=== PATIENT | female | born 1980 | race Caucasian/White ===

== ENCOUNTER → 2020-09-28 | Outpatient (CLI) | payer BC ==
[~2020-09-28] MED LIST: AMOX500C2 PO; CEPH500C PO; CYCL10TA45 PO; CYCL10TA9 PO; DIPH25TA65 PO; FAMO20TA5 PO; HYDR-757 PO; LISI1TAB10 PO; LISI1TAB46 PO; OMEP20TA7 PO
--- NOTE | 2020-09-28 09:20 | Diagnostic Imaging Report ---
PROCEDURE: US Gallbladder. TECHNIQUE: Multiple real-time grayscale images were obtained over the right upper quadrant in various projections. INDICATION: Heartburn. Liver is mildly enlarged at 18.9 cm. There is diffuse increased echogenicity throughout the liver consistent with hepatic steatosis. No discrete liver mass is identified. The portal vein is patent and shows normal direction of flow. Gallbladder is without stones or sludge. No wall thickening or biliary duct dilatation is seen. Visualized pancreas is unremarkable. Aorta is nonaneurysmal. IVC is patent. Right kidney is without calculi or hydronephrosis. There is no ascites. IMPRESSION: 1. Mild hepatomegaly and hepatic steatosis. 2. No evidence of cholelithiasis or acute cholecystitis. Dictated by: Dictated on workstation # [id number]
== END ==
LOC: RAD 08:30
PROVIDERS: ATTEND Surgery
DX: K76.0 Fatty (change of) liver, not elsewhere classified (principal); R12 Heartburn
CPT/HCPCS: 76705

== ENCOUNTER 2020-10-05 05:32 | Outpatient (RCR) | payer BC ==
[~2020-10-05] VITALS: Ht 172.7 cm; Wt 109.0 kg
== END 2020-10-05 08:48 | disposition home or self-care (01) ==
LOC: PREOP 05:32
PROVIDERS: ATTEND Surgery
DX: Z01.812 Encounter for preprocedural laboratory examination (principal); R12 Heartburn; R13.10 Dysphagia, unspecified; Z20.822 Contact with and (suspected) exposure to COVID-19
CPT/HCPCS: 87635

== ENCOUNTER 2020-10-06 12:37 | Day surgery (SDC) | payer BC ==
[~2020-10-06] VITALS: Ht 172.7 cm; Wt 109.0 kg
[~2020-10-06 12:37] MED LIST changes: +LACTATED RINGERS 1,000 ML IV ONE
[2020-10-06] MEDS ORDERED: LACTATED RINGERS 1,000 ML IV STA (12:41)
[2020-10-06] MEDS ORDERED: HURRICAINE EXT TUBE (BENZOCAINE) XX PRN (12:45)
[2020-10-06 13:08] VITALS: BP 158/91
[2020-10-06 13:45] VITALS: BP 106/59
[2020-10-06] MEDS ORDERED: MIDAZOLAM 2 MG/2 ML (VERSED) VIAL ONE (14:41)
[2020-10-06] MEDS ORDERED: proPOfol 200 MG/20 ML (DIPRIVAN) VIAL IV ONE (14:41)
[2020-10-06] MEDS ORDERED: LIDOCAINE TOPICAL 4% 50 ML BTL ONE (15:12)
--- NOTE | 2020-10-06 15:19 | Progress Note-Pre Operative ---
Pre-Operative Progress Note H&P Reviewed The H&P was reviewed, patient examined and no changes noted. Time Seen by Provider: 15:16 Date H&P Reviewed: Oct 06, 2020 Time H&P Reviewed: 15:16 Pre-Operative Diagnosis: Heartburn, dysphagia ROQUE CALL DO Oct 06, 2020 15:19
[2020-10-06] MEDS ORDERED: LIDOCAINE 2% VISCOUS 15 ML UDC PO ONE (15:20)
[2020-10-06 15:39] VITALS: BP 96/52
--- NOTE | 2020-10-06 15:42 | Endoscopy Discharge Instruct ---
Endo Procedure/Findings Findings 1.: Hiatal Hernia 2.: Gastritis Discharge Instructions - Activity: You might feel a little sleepy until tomorrow. This is due to the medicine you received to relax you. Until tomorrow, you should: NOT drive a car, operate machinery or power tools. NOT drink any alcoholic beverages. NOT make any important decisions or sign importortant papers. Do not return to work until tomorrow, unless otherwise instructed. Resume previous activities tomorrow. Diet: Start by taking liquids. If you tolerate liquids, advance to solid food. 1.: EGD in 3 years Notify Physician - If you experience excessive bleeding, unusual abdominal pain, fever, or chest pain, contact your doctor immediately. ROQUE CALL DO Oct 06, 2020 15:42
--- NOTE | 2020-10-06 15:42 | Progress Note-Post Operative ---
Post-Operative Progess Note Surgeon (s)/Assistant Program Manager (s) Surgeon ROQUE CALL DO Assistant Program Manager: none Pre-Operative Diagnosis Heartburn, dysphagia Post-Operative Diagnosis Gastritis Hiatal hernia Procedure & Operative Findings Date of Procedure 10/06/20 Procedure Performed/Findings PROCEDURE NOTE: After informed consent was obtained, the patient was brought to the endoscopy suite, placed in bed in left lateral decubitus position. She was administered IV sedation by the RN TRIAGE who then monitored her vitals the entire time, heart rate, blood pressure and pulse ox and the scope was inserted down the mouth through the esophagus into the stomach. On the way down, noted some mild esophagitis, took a picture, pushed into the stomach, pushed past the antrum into the duodenum. Duodenum looked good. Pulled back and did a biopsy of antrum, then retroflexed the scope, saw hiatal hernia, took a picture of this. Then did a biopsy of the body of the stomach and then pulled the scope into the GE junction, took another picture of the hiatal hernia and then did a biopsy of the GE junction. Pushed the scope back into the stomach, suctioned all the air out of the stomach and then pulled the scope up the esophagus, took some pictures in the esophagus. There were no ulcers or signs of stricture and at this point pulled the scope up the esophagus and out the mouth. The patient tolerated the procedure, and she recovered in endoscopy suite. Anesthesia Type IV sedation by RN TRIAGE Estimated Blood Loss Estimated blood loss (mL): scant Specimens/Packing Specimens Removed antral bx body of stomach bx GE jxn bx ROQUE CALL DO Oct 06, 2020 15:42
[2020-10-06 16:15] VITALS: BP 118/75
[2020-10-06 16:25] VITALS: BP 118/75
--- NOTE | 2020-10-06 20:01 | Anesthesia-General Post-Op ---
MAC Patient Condition Mental Status/LOC: Same as Preop Cardiovascular: Satisfactory Nausea/Vomiting: Absent Respiratory: Satisfactory Pain: Controlled Complications: Absent Post Op Complications Complications None Follow Up Care/Instructions Patient Instructions None needed. Anesthesiology Discharge Order Discharge Order Patient is doing well, no complaints, stable vital signs, no apparent adverse anesthesia problems. No complications reported per nursing. VICTORIANO SARABIA CRNA Oct 06, 2020 20:01
== END 2020-10-06 16:25 | disposition home or self-care (01) ==
LOC: ENDO 12:37
PROVIDERS: ATTEND Surgery
DX: K29.50 Unspecified chronic gastritis without bleeding (principal); K21.00 Gastro-esophageal reflux disease with esophagitis, without bleeding; K44.9 Diaphragmatic hernia without obstruction or gangrene; I10 Essential (primary) hypertension; J30.2 Other seasonal allergic rhinitis; E66.9 Obesity, unspecified; Z79.899 Other long term (current) drug therapy; Z90.89 Acquired absence of other organs; Z68.41 Body mass index [BMI] 40.0-44.9, adult
CPT/HCPCS: 84703; 88305

== ENCOUNTER → 2020-10-11 | Outpatient (CLI) | payer BC ==
[~2020-10-11] MED LIST changes: +CATHETER FLUSH 10 ML SYR IV PRN; -LACTATED RINGERS 1,000 ML IV ONE
--- NOTE | 2020-10-11 19:08 | Diagnostic Imaging Report ---
EXAMINATION: Nuclear medicine hepatobiliary scan INDICATION: Abdominal pain This study was performed following administration of 5.02 mCi at 99 m Technetium Choletec. One can of Ensure was also administered for the calculation of the ejection fraction. There are no prior nuclear medicine studies available for comparison. The gallbladder ultrasound exam performed on 09/28/2020 failed to show any sign of cholelithiasis or acute cholecystitis. On this study, there is uptake of the radiotracer by the gallbladder before 30 minutes. This would weigh against the diagnosis of acute cholecystitis. There is also extension of the radiotracer into the small bowel indicating the common bile duct is not obstructed. The ejection fraction is 33% (normal greater than 35%). The reason for the slight diminished ejection fraction is not certain. IMPRESSION: 1. There is no evidence for acute cholecystitis or for obstruction of the common bile duct. 2. The ejection fraction is 33% and just below normal limits. Clinical follow-up is recommended. Dictated by: Dictated on workstation # [id number]
== END ==
LOC: CARD 12:45
PROVIDERS: ATTEND Surgery
DX: R12 Heartburn (principal); R10.9 Unspecified abdominal pain
CPT/HCPCS: 78227; A9537

== ENCOUNTER → 2020-10-15 | Outpatient (CLI) | payer BC ==
[~2020-10-15] MED LIST changes: +HOLD METFORMIN - RECEIVED CONTRAST 20 ML VIAL IV SCH; +IOHEXOL 350 MG/ML 100 ML (OMNIPAQUE 350) VIAL IV ONE; +NS 100 ML (IVPB) BAG IV ONE
--- NOTE | 2020-10-15 12:48 | Diagnostic Imaging Report ---
INDICATION: Adnexal mass. TECHNIQUE: Multiple contiguous axial images were obtained through the abdomen and pelvis after administration of intravenous contrast. Auto Exposure Controls were utilized during the CT exam to meet ALARA standards for radiation dose reduction. All CT scans use one or more of the following dose optimizing techniques: automated exposure control, MA and/or KvP adjustment based on patient size and exam type or iterative reconstruction. There is no previous study for comparison. The visualized portions of the lung bases are clear. There were no pleural fluid collections. There is no free intraperitoneal air. The liver shows diffuse low-density change compatible with fatty infiltration. Gallbladder appeared normal. The spleen, adrenals, and pancreas are normal. The right kidney is normal. The left kidney shows a nonocclusive stone in the midpole measuring 6 to 7 mm. There is no ureteral stone or hydronephrosis. There is no retroperitoneal mass. There is no ascites. There is a large mass in the mid pelvis which appears to arise from the right ovary. This mass contains study elements and measures 13.3 x 10.3 x 11.4 cm. The lesion has fairly smooth round appearance. The uterus and left adnexa appear normal. Visualized bowel loops are unremarkable. There is no bone abnormality seen. There is an incidental small fat-containing periumbilical hernia. IMPRESSION: Large right adnexal lesion, measuring over 13 cm in diameter. The lesion contains fatty elements and is therefore compatible with a dermoid lesion. There is no other acute finding. Incidental nonocclusive stone in the left kidney. Dictated by: Dictated on workstation # [id number]
== END ==
LOC: RAD 10:51
PROVIDERS: ATTEND Pediatrics
DX: N83.8 Other noninflammatory disorders of ovary, fallopian tube and broad ligament (principal)
CPT/HCPCS: 74177

== ENCOUNTER 2020-11-03 05:31 | Outpatient (CLI) | payer BC ==
[~2020-11-03] VITALS: Ht 160 cm; Wt 109.0 kg
[~2020-11-03 05:31] MED LIST changes: -CATHETER FLUSH 10 ML SYR IV PRN; -HOLD METFORMIN - RECEIVED CONTRAST 20 ML VIAL IV SCH; -IOHEXOL 350 MG/ML 100 ML (OMNIPAQUE 350) VIAL IV ONE; -NS 100 ML (IVPB) BAG IV ONE
== END 2020-11-04 16:28 | disposition home or self-care (01) ==
LOC: PREOP 05:31
PROVIDERS: ATTEND Surgery
DX: Z01.818 Encounter for other preprocedural examination (principal)

== ENCOUNTER 2020-11-15 06:10 | Day surgery (SDC) | payer BC ==
[~2020-11-15] VITALS: Ht 160 cm; Wt 109.0 kg
[2020-11-15] VITALS (13 sets, daily range): BP systolic 109–132; BP diastolic 54–91
[2020-11-15] MEDS ORDERED: SEVOFLURANE (ULTANE) 15 ML INHAL SOLN ONE ×3 (06:44→09:57)
[2020-11-15] MEDS ORDERED: fentaNYL INJ 100 MCG/2 ML AMP ONE (06:44)
[2020-11-15] MEDS ORDERED: ROCURONIUM 10 MG/ML 5 ML SYRINGE IV ONE ×2 (06:44→08:21)
[2020-11-15] MEDS ORDERED: LIDOCAINE PF 2% 5 ML (XYLOCAINE) VIAL ONE (06:44)
[2020-11-15] MEDS ORDERED: ONDANSETRON 4 MG/2 ML (SDV) Z0FRAN ONE (06:44)
[2020-11-15] MEDS ORDERED: proPOfol 200 MG/20 ML (DIPRIVAN) VIAL IV ONE (06:44)
[2020-11-15] MEDS ORDERED: MIDAZOLAM 2 MG/2 ML (VERSED) VIAL ONE (06:46)
[2020-11-15] MEDS: LACTATED RINGERS 1,000 ML IV PRN ×2 (06:51→08:20)
[2020-11-15] MEDS ORDERED: BUPIVACAINE 0.25% 30 ML (SENSORCAINE) VIAL ONE (06:54)
[2020-11-15] MEDS ORDERED: LIDOCAINE/EPI 1%-1:100,000 (XYLOCAINE) 20ML ONE (06:54)
[2020-11-15] MEDS ORDERED: ceFAZolin 2 GM IV Premixed 50 ML IV ONE (07:00)
[2020-11-15] MEDS ORDERED: metroNIDAZOLE 500MG/100ML IVPB 100 ML IV ONE (07:00)
[2020-11-15] MEDS ORDERED: INDOCYANINE GREEN 25 MG (ICG) VIAL IV ONE (07:00)
[2020-11-15 07:04] LABS: BASOPHILS # (AUTO) 0.1 10^3/uL (0.0-0.1); BASOPHILS % (AUTO) 1 % (0-10); EOSINOPHILS # (AUTO) 0.6 10^3/uL (0.0-0.3); EOSINOPHILS % (AUTO) 5 % (0-10); HEMATOCRIT 37 % (35-52); LYMPHOCYTES # (AUTO) 1.5 10^3/uL (1.0-4.0); LYMPHOCYTES % (AUTO) 15 % (12-44); MEAN CORPUSCULAR HEMOGLOBIN 30 pg (25-34); MEAN CORPUSCULAR HGB CONC 33 g/dL (32-36); MEAN CORPUSCULAR VOLUME 90 fL (80-99); MEAN PLATELET VOLUME 9.1 fL (9.0-12.2); MONOCYTES # (AUTO) 0.7 10^3/uL (0.0-1.0); MONOCYTES % (AUTO) 7 % (0-12); NEUTROPHILS # (AUTO) 7.7 10^3/uL (1.8-7.8); NEUTROPHILS % (AUTO) 73 % (42-75); PLATELET COUNT 354 10^3/uL (130-400); WHITE BLOOD COUNT 10.5 10^3/uL (4.3-11.0)
--- NOTE | 2020-11-15 07:29 | Progress Note-Pre Operative ---
Pre-Operative Progress Note H&P Reviewed The H&P was reviewed, patient examined and no changes noted. Time Seen by Provider: 07:24 Date H&P Reviewed: Nov 15, 2020 Time H&P Reviewed: 07:24 Pre-Operative Diagnosis: Biliary Dyskinesia ROQUE CALL DO Nov 15, 2020 07:29
--- NOTE | 2020-11-15 07:49 | Progress Note-Pre Operative ---
Pre-Operative Progress Note H&P Reviewed The H&P was reviewed, patient examined and no changes noted. Date Seen by Provider: Nov 15, 2020 Time Seen by Provider: 07:30 Date H&P Reviewed: Nov 15, 2020 Time H&P Reviewed: 07:24 Pre-Operative Diagnosis: AUB, Pelvic Mass, BMI > 40 MIKE DE LA O DO Nov 15, 2020 07:49
[2020-11-15] MEDS ORDERED: IBUP-844 PO (07:50)
[2020-11-15] MEDS ORDERED: SMT80CT PO (07:50)
[2020-11-15] MEDS ORDERED: BENZ1LOZ64 MM (07:50)
[2020-11-15] MEDS ORDERED: DCS100C PO (07:50)
[2020-11-15] MEDS ORDERED: HYDR-34 PO (07:50)
--- NOTE | 2020-11-15 07:52 | Discharge Inst-Women's Service ---
Discharge Inst-Women's Serv Depart Medication/Instructions New, Converted or Re-Newed RX: RX on Chart Problems Reviewed?: Yes Consults/Follow Up Additional Follow Up: Yes Orders/Referrals Dr. Franklin in 7-10 days and in 8 weeks Activity Activity: Activity as Tolerated Driving Instructions: No Driving for 1 Week NO SMOKING: NO SMOKING Nothing Inside Vagina: No Douching, No [place], No Tampons Diet Discharge Diet: No Restrictions Symptoms to Report to : Bleeding Excessive, Pain Increased, Fever Over 101 Degrees F, Vaginal Bleeding Increase, Questions/Concerns For Any Problems or Questions: Contact Your Physician Skin/Wound Care Infection Signs and Symptoms: Increased Redness, Foul Odor of Wound, Increased Drainage, Skin Itchy or Has a Rash, Increased Swelling, Temperature Above 101 F Operative Area Clean and Dry: Keep Incision Clean/Dry Stitches/Anatoliy/Dermabond: Dermabond, Care of Stitches Bathing Instructions: MIKE Hernandez DO Nov 15, 2020 07:52
[2020-11-15] MEDS ORDERED: LACTATED RINGERS 1,000 ML IV SCH (08:00)
[2020-11-15] MEDS ORDERED: ZOLPIDEM 5 MG (AMBIEN) TAB PO PRN (08:00)
[2020-11-15] MEDS ORDERED: ONDANSETRON 4 MG/2 ML (SDV) Z0FRAN IV PRN (08:00)
[2020-11-15] MEDS ORDERED: ANTACID SUSP 30 ML UDC (MYLANTA) PO PRN (08:00)
[2020-11-15] MEDS ORDERED: CHLORASEPTIC LOZENGE MM PRN (08:00)
[2020-11-15] MEDS ORDERED: SIMETHICONE 80 MG (MYLICON) CHEW PO PRN (08:00)
[2020-11-15] MEDS ORDERED: HYDROmorphone 2 MG/ML VIAL (DILAUDID) ONE (08:02)
[2020-11-15] MEDS: KETOROLAC 30 MG/ML VIAL IV PRN ×3 (09:15→21:22)
[2020-11-15] MEDS ORDERED: GLYCOPYRROLATE 0.2 MG/ML (ROBINUL) 2 ML VIAL ONE (09:18)
[2020-11-15] MEDS ORDERED: NEOSTIGMINE 3 MG/3 ML VIAL ONE (09:18)
--- NOTE | 2020-11-15 09:26 | Progress Note-Post Operative ---
Post-Operative Progess Note Surgeon (s)/Zinc Chloride Operator (s) Surgeon ROQUE CALL DO Zinc Chloride Operator: Noemi Pre-Operative Diagnosis Biliary Dyskinesia Post-Operative Diagnosis same Procedure & Operative Findings Date of Procedure 11/15/20 Procedure Performed/Findings PROCEDURE: Laparoscopic cholecystectomy with intraoperative cholangiogram - Robotic assisted COMPLICATIONS: None. PROCEDURE: The patient was taken to the operating suite and was prepped and draped in sterile fashion. A surgical pause was performed. Just superior to the umbilicus, a 12 mm incision was made. Dissection was taken down to the fascia, which was then scored and grasped with a Alex and the abdomen was then entered. A 0 Vicryl suture was placed in a tamdln-xm-murda fashion and a Rodrigues trocar was placed and secured. Pneumoperitoneum was achieved. An 8mm trochar placed 8cm from supraumbilical port on the right and then 2 in the left upper quadrant; under direct visualization. The gallbladder was then grasped and elevated. The cystic duct, and cystic artery were then dissected out. Clip was placed on the distal portion of the cystic duct and using ICG and Firefly, able to trace the cystic duct going into the common bile duct. Clips were placed on proximal portion of the cystic duct and then the duct was then transected. Clips were placed along the proximal and distal portion of the cystic artery which was then transected. Hook cautery was used to dissect the gallbladder from the gallbladder fossa achieving hemostasis. The gallbladder was placed in an Endobag and removed through the 12 mm trocar site. The abdomen was then reinspected. Copious amounts of irrigation were used to irrigate the abdomen and there were no signs of active bleeding. Hemostasis had been achieved. Dr. Franklin then performed the Hysterectomy. Anesthesia Type GET Estimated Blood Loss Estimated blood loss (mL): scant Specimens/Packing Specimens Removed GB and contents ROQUE CALL DO Nov 15, 2020 09:26
--- NOTE | 2020-11-15 09:28 | Discharge Inst-Surgical ---
Discharge Inst-Surgical Depart Medication/Instructions New, Converted or Re-Newed RX: Other Patient Instructions Follow up Appt: Make appointment for 1 week. [phone] Instructions: No lifting greater than 20 pounds. No strenuous activity. May shower in 24 hours, no tub bath or soaking. Use incentive spirometer at home as directed. No Smoking Skin/Wound Care: May remove bandages in am. You need to leave the Dermabond on incision it will fall off on it's own. Symptoms to Report: Appetite Changes, Extremity Discoloration, Numbness/Tingling, Swelling Increased, Bleeding Excessive, Eyesight Changes, Pain Increased, Urine Color Change, Constipation(Persistent), Fever over 101 degree F, Pain/Pressure in chest, Urinating Difficulty, Cough Up/Vomit Blood, Heart Beat Irreg/Pounding, Pain/Pressure in jaw, Cramps in feet or legs, Lightheadedness, Pain/Pressure in shoulder, Diarrhea(Persistent), Memory Changes Suddenly, Questions/Concerns, Weight gain consecutive days, Dizziness/Fainting, Nausea/Vomiting, Shortness of Breath, Weight gain over 2 pounds If questions or concerns contact your physician Or seek help at emergency department. Activity Activity as Tolerated: Yes Activity Instructions: Avoid Stress to Incision Driving Instructions: No Driving/Refer to Diet Discharge Diet: Avoid Fatty Foods, Low Fat/Low Cholesterol Diet After 24 Hours: Clear Liquid if Nauseous If Any Problems/Questions/Issu: Contact Your Physician, Go to Emergency Room Skin/Wound Care Infection Signs and Symptoms: Increased Redness, Foul Odor of Wound, Increased Drainage, Skin Itchy or Has a Rash, Increased Swelling, Temperature Above 101 F Wound Care Comment: heating pad to shoulder or neck tonight for pain Bathing Instructions: Shower Stitches/Lindsay/Dermabond Dis: Dermabond Ice Pack: Ice On and Off Site (as needed for pain at incision sites) ROQUE CALL DO Nov 15, 2020 09:28
[2020-11-15] MEDS ORDERED: KETOROLAC 30 MG/ML VIAL ONE (09:39)
[2020-11-15] MEDS ORDERED: ONDANSETRON 4 MG/2 ML (SDV) Z0FRAN IVP PRN (10:15)
[2020-11-15] MEDS ORDERED: HYDROmorphone 2 MG/ML VIAL (DILAUDID) IV ONE (10:15)
[2020-11-15] MEDS: HYDROmorphone 2 MG/ML VIAL (DILAUDID) IV PRN ×2 (12:36→17:35)
[2020-11-15] MEDS: HYDROcodone/APAP 7.5 MG/325 MG (LORTAB, LORCET PLUS) TABLET PO PRN ×2 (13:50→19:15)
--- NOTE | 2020-11-15 14:45 | OPERATIVE REPORT ---
DATE OF SERVICE: PREOPERATIVE DIAGNOSES: 1. A 40-year-old female with pelvic mass. 2. Abnormal uterine bleeding. 3. Biliary dyskinesia. POSTOPERATIVE DIAGNOSES: 1. A 40-year-old female with pelvic mass. 2. Abnormal uterine bleeding. 3. Biliary dyskinesia. PROCEDURES PERFORMED: Robotic-assisted total laparoscopic hysterectomy with bilateral salpingectomy and right oophorectomy including removal of right pelvic mass. SURGEON: Zach De La O DO. COSURGEON: Dr. Moiz Isidro, who performed a robotic-assisted laparoscopic cholecystectomy. ANESTHESIA: General endotracheal. ESTIMATED BLOOD LOSS: Minimal. URINE OUTPUT: 80 mL clear at the end of procedure. FLUIDS: 1800 mL lactated Ringer's solution. SPECIMEN SENT: Uterus, bilateral fallopian tubes and right ovary including right ovarian pelvic mass as well as Dr. Isidro's portion of the gallbladder. INDICATIONS FOR PROCEDURE: This 40-year-old female was a patient, who had been consulted to my office for a finding of a solid and cystic-appearing pelvic mass on imaging studies, which had high suspicion for dermoid or fibroid tumor. I discussed with the patient removal of this due to the fact she was symptomatic and it was nearly 10 cm in diameter. Risks of the procedure were discussed with the patient in detail, who performed a hysterectomy in order to remove the mass through the colpotomy incision as well as deal with her chronic issues with ongoing abnormal uterine bleeding. After all of her questions were addressed concerning risk of the procedure, recovery timeframe, follow up, possible need for reoperation, risk from anesthesia and even , consent was obtained in the preoperative area and the patient was taken to the operating room. OPERATIVE REPORT IN DETAIL: Once in the operating room, general anesthesia was found to be adequate. She was placed in the dorsal lithotomy position, prepped and draped in a normal sterile fashion, where a timeout was performed. A Ansari catheter was placed using sterile technique. A weighted speculum inserted into the patient's vagina. Right angled retractor was used to visualize the cervix, which was grasped at 12 o'clock position using a long Allis clamp and 0 Vicryl suture was then placed at the anterior lip of cervix, which was used as my retraction point. I then sounded the uterine cavity, depth was found to be 8 cm. I selected an 8 cm uterine manipulator tip and a 4 cm colpotomy ring. I assembled the Amy uterine manipulator, placing the manipulator tip into the uterus, deploying the balloon and advanced the colpotomy around the vaginal fornix. Once this was in place, I removed all the other instruments from the patient's vagina, performed a change of gloves and took my attention to the abdomen, where I turned the case over to Dr. Isidro, who places his trocars for his portion of the procedure. There was a supraumbilical trocar that was placed in the Kaela fashion with direct visualization and dissection down to the fascia. Both lateral trocars were placed under direct visualization of laparoscope, infiltrating the skin using 0.25% Marcaine making 8 mm incision and directing the trocars through the incisions under direct visualization of laparoscope. Once my trocars two trocars were in place, Dr. Isidro placed an additional one in the left upper quadrant. He then docked the da Latasha robot and performed his portion of the procedure. Please see his dictation for complete details pertaining to the cholecystectomy in detail, after which, he turned the case back over to me with the trocars in same position. I re-docked the robot and had the patient placed in steep Trendelenburg table, which allowed me to visualize all my pelvic anatomy. Once the robot was docked, I took my place at the operative console. I performed the following dissection using the robot and the SynchroSeal device. I identified the right infundibulopelvic ligament, which I sealed and transected using the SynchroSeal and I took this around the ovary, amputating the ovary first and allowed me to free up the pelvic anatomy structures in order to perform the hysterectomy. Once the right ovary was freed, I was able to disconnect it from the uterus at the uteroovarian ligament, which was sealed and transected. The ovary was then placed in the right upper abdomen. I then grasped the round ligament on the right, which I sealed and transected using the SynchroSeal. I then grasped the entire broad ligament, which I sealed all the way down to the lower uterine segment, at which point, I the anterior and posterior leaflets of the broad ligament, anterior leaflet was taken around the anterior vaginal fornix and posterior leaflets was taken around to the posterior vaginal fornix. This allowed me to skeletonize the uterine vessels, which I sealed and transected using the SynchroSeal. On the left side, I started the uteroovarian ligament, I sealed and transected using the SynchroSeal. I then created a window in the mesosalpinx and took this laterally down the mesosalpinx, amputated fallopian tube from the surrounding blood supply. I then grasped the broad ligament and the round ligament using the SynchroSeal, which I sealed and transected using the SynchroSeal. I then took this dissection down to the level of the lower uterine segment, at which point, in similar fashion, I the anterior and posterior leaflets of the broad ligament, anterior leaflet was taken around to the anterior vaginal fornix and posterior leaflet was taken around the posterior vaginal fornix. This allowed me to skeletonize and sealed the left lateral uterine vessels using the SynchroSeal device. I then created a colpotomy at 12 o'clock position using monopolar mitchell and took this circumferentially around the vaginal fornix amputating the cervix away from the vagina. The entire cervix, uterus and bilateral fallopian tubes were removed through the vagina at that point. I then introduced a 15 cm Endopouch bag through the vagina and I placed the ovary and its mass structure into the bag. The entire specimen was then removed intact through the vagina without rupturing the ovary after which there was no active bleeding noted from any of my dissection planes. I closed the vaginal cuff and the lateral vaginal apices using 2-0 Vicryl suture in a gwejfj-cw-aqjyi fashion, copiously spinning up to the uterosacral ligaments. I then closed the remainder of the vaginal cuff using 2-0 V-Loc in a running fashion, after which, there was no active bleeding noted from any of my dissection planes. I then undocked the da Latasha robot and proceeded with remainder of the case laparoscopically. I then copiously irrigated the pelvis using normal saline. Once again, there was no active bleeding noted from any of my dissection planes. I placed Surgiflo hemostatic agent over all my planes of dissection to ensure excellent postoperative hemostasis. I then had the patient taken out of steep Trendelenburg, where I removed all of the lateral trocars under direct visualization of laparoscope. The supraumbilical trocar was left in place to release insufflation and introduced 10 mL of 0.25% Marcaine into the peritoneal cavity for postoperative pain management. This trocar was removed after that was performed. The fascia of that trocar was then closed using the Kaela suture that Dr. Isidro had placed. This was 0 Vicryl suture. It secured the fascia and there was no defect upon digital examination of the incision. I then closed the skin of all four trocars using 4-0 Monocryl in interrupted subcuticular stitches. Dermabond was applied to the incisions and Band-Aids were placed over these as well. Ansari catheter was left in place. The patient tolerated the procedure well and was taken to the recovery area in stable condition. Lap and sponge counts were correct at the end of the procedure. Instrument count was correct as well. Two grams of Ancef, 500 mg of Flagyl were given preoperatively for infection prophylaxis. Job ID: [id number] DocumentID: [id number] Dictated Date: 11/15/2020 10:12:59 Steam Room Attendant Date: 11/15/2020 14:44:21 Dictated By: ZACH DE LA O DO
[2020-11-15] MEDS: DOCUSATE SODIUM 100 MG (COLACE) CAP PO PRN (19:15)
[2020-11-15] MEDS ORDERED: NS IV 1000 ML 1,000 ML ONE (19:45)
[2020-11-15] MEDS ORDERED: NS IV 1000 ML 1,000 ML IV SCH (20:15)
[2020-11-16] MEDS ORDERED: IBUPROFEN 600 MG (MOTRIN) TAB PO ONE (03:00)
[2020-11-16] MEDS: IBUPROFEN 600 MG (MOTRIN) TAB PO SCH ×2 (03:05→09:04)
[2020-11-16] MEDS: HYDROcodone/APAP 7.5 MG/325 MG (LORTAB, LORCET PLUS) TABLET PO PRN ×2 (03:05→09:05)
[2020-11-16 03:06] VITALS: BP 117/58
[2020-11-16] MEDS: DOCUSATE SODIUM 100 MG (COLACE) CAP PO PRN (09:04)
[2020-11-16 09:09] VITALS: BP 109/57
--- NOTE | 2020-11-16 10:06 | Anesthesia-General Post-Op ---
General Patient Condition Mental Status/LOC: Same as Preop Cardiovascular: Satisfactory Nausea/Vomiting: Absent Respiratory: Satisfactory Pain: Controlled Complications: Absent Post Op Complications Complications None Follow Up Care/Instructions Patient Instructions None needed. Anesthesia/Patient Condition Patient Condition Patient is doing well, no complaints, stable vital signs, no apparent adverse anesthesia problems. No complications reported per nursing. D/C home per [facility] [place] Criteria: Yes VICTORIANO SARABIA CRNA Nov 16, 2020 10:05
== END 2020-11-16 11:44 | disposition home or self-care (01) ==
LOC: SDC 06:10 → WS 10:37 → SDC 11-16 11:44
PROVIDERS: ATTEND Surgery
DX: K81.1 Chronic cholecystitis (principal); N83.201 Unspecified ovarian cyst, right side; N80.0 Endometriosis of uterus; N72 Inflammatory disease of cervix uteri; K82.8 Other specified diseases of gallbladder; I10 Essential (primary) hypertension; K21.9 Gastro-esophageal reflux disease without esophagitis; E66.01 Morbid (severe) obesity due to excess calories; Z68.41 Body mass index [BMI] 40.0-44.9, adult; Z79.899 Other long term (current) drug therapy
CPT/HCPCS: 36415; 84703; 85025; 86850; 86900; 86901; 87081; 88304; 88307; 88341; 88342; 94664

== ENCOUNTER → 2021-05-24 | Outpatient (CLI) | payer BC, OTHER ==
[~2021-05-24] MED LIST changes: +BENZ1LOZ64 MM; +CYCL10TA25 PO; -CYCL10TA9 PO; +DOCU-239 PO; +HYDR-34 PO; +IBUP-844 PO; +SMT80CT PO
== END ==
LOC: CARD 08:00
PROVIDERS: ATTEND Pediatrics
DX: R00.0 Tachycardia, unspecified (principal)
CPT/HCPCS: 93225; 93226